=== PATIENT | male | born 1995 | race Caucasian/White ===

== ENCOUNTER 2019-05-24 00:19 | Emergency (ER) | payer MEDICAID ==
[2019-05-24] MEDS: Ibuprofen 800 MG Tab PO ONE (01:19)
[2019-05-24] MEDS: Acetaminophen 500 MG Tab PO ONE (01:19)
--- NOTE | 2019-05-24 01:20 | EDM.PDOC ---
ED HPI GENERAL MEDICAL PROBLEM - General Stated Complaint: hematoma Time Seen by Provider: 05/24/19 00:25 Source of Information: Reports: Patient - Related Data Allergies Allergy/AdvReac Type Severity Reaction Status Date / Time No Known Allergies Allergy Verified 05/24/19 09:07 Home Meds: Home Meds .Prescription Meds 1 tab PO ASDIRECTED 05/24/19 [History] Ibuprofen [Motrin] 800 mg PO TID PRN #30 tablet 05/24/19 [Rx] ED ROS GENERAL - Review of Systems Review Of Systems: See Below Constitutional: Reports: No Symptoms HEENT: Reports: No Symptoms Respiratory: Reports: No Symptoms Cardiovascular: Reports: No Symptoms Endocrine: Reports: No Symptoms GI/Abdominal: Reports: No Symptoms : Reports: No Symptoms Musculoskeletal: Reports: No Symptoms Skin: Reports: No Symptoms Neurological: Reports: No Symptoms Psychiatric: Reports: Anxiety, Depression Hematologic/Lymphatic: Reports: No Symptoms Immunologic: Reports: No Symptoms ED EXAM, GENERAL - Physical Exam Exam: See Below Eye Exam: Bilateral Eye: PERRL Ears: Normal External Exam Nose: Normal Inspection, Normal Mucosa, No Blood Respiratory/Chest: No Respiratory Distress, Lungs Clear, Normal Breath Sounds Cardiovascular: Normal Peripheral Pulses, Regular Rate, Rhythm, No Edema, No Gallop, No Murmur, No Rub GI/Abdominal: Normal Bowel Sounds, Soft, Non-Tender Extremities: Normal Inspection, Normal Range of Motion, Other (hematoma left antecubital) Course - Vital Signs Text/Narrative:: reassurance Last Recorded V/S: Last Vital Signs Temp 37.3 C 05/24/19 00:25 Pulse 97 05/24/19 00:25 Resp 18 05/24/19 00:25 BP 127/61 05/24/19 00:25 Pulse Ox 99 05/24/19 00:25 - Orders/Labs/Meds Meds: Medications Discontinued Medications Generic Name Dose Route Start Last Admin Trade Name Freq PRN Reason Stop Dose Admin Acetaminophen 1,000 mg 05/24/19 01:15 05/24/19 01:19 Tylenol Extra Strength PO 05/24/19 01:16 1,000 mg ONETIME ONE Administration Ibuprofen 800 mg 05/24/19 01:15 05/24/19 01:19 Motrin PO 05/24/19 01:16 800 mg ONETIME ONE Administration Departure - Departure Time of Disposition: 01:15 Disposition: Home, Self-Care 01 Condition: Good Clinical Impression: Hematoma - Discharge Information Prescriptions: Ibuprofen [Motrin] 800 mg PO TID PRN #30 tablet PRN Reason: Pain Instructions: Hematoma, [id number] Referrals: PCP,None [Primary Care Provider] - Forms: ED Department Discharge Additional Instructions: please read discharge instructions on hematoma apply heat take ibuprofen 800 mg with tylenol 1000 mg evry 8 hours as needed for pain follow up as needed
== END 2019-05-24 01:30 | disposition home or self-care (01) ==
LOC: FB.ED 00:19
DX: M79.81 Nontraumatic hematoma of soft tissue (principal)
CPT/HCPCS: 99283; A9270

== ENCOUNTER 2019-05-27 03:21 | Emergency (ER) | payer MEDICAID ==
--- NOTE | 2019-05-27 03:49 | EDM.PDOC ---
ED HPI GENERAL MEDICAL PROBLEM - General Chief Complaint: Respiratory Problem Stated Complaint: congestion, cough Time Seen by Provider: 05/27/19 03:46 Source of Information: Reports: Patient History Limitations: Reports: No Limitations - History of Present Illness INITIAL COMMENTS - FREE TEXT/NARRATIVE: Presents with cough, chills, and sinus congestion x 2 weeks as well as ear pain x 3 days. Denies chest pain or sob. Patient is also concerned regarding some peeling of his fingertips. Duration: Week(s): (2) Severity: Mild Generalized Pain Score (Numeric/FACES): 5 - Related Data Allergies Allergy/AdvReac Type Severity Reaction Status Date / Time No Known Allergies Allergy Verified 05/27/19 03:32 Home Meds: Home Meds Doxycycline Hyclate 100 mg PO BID #20 tablet. 05/27/19 [Rx] FLUoxetine [PROzac] 40 mg DAILY 05/27/19 [History] Past Medical History Psychiatric History: Reports: ADD, Anxiety, Depression, Suicidal Ideation, Other (See Below) (ODD) - Past Surgical History Musculoskeletal Surgical History: Reports: Other (See Below) Other Musculoskeletal Surgeries/Procedures:: States history of knee surgery. Social & Family History - Tobacco Use Smoking Status *Q: Current Every Day Smoker Tobacco Use Within Last Twelve Months: Cigarettes ED ROS GENERAL - Review of Systems Review Of Systems: Comprehensive ROS is negative, except as noted in HPI. ED EXAM, GENERAL - Physical Exam Exam: See Below Exam Limited By: No Limitations General Appearance: Alert, WD/WN, No Apparent Distress Ear Exam: Bilateral Ear: TM Dull, TM Red Nose: Normal Inspection, Other (mild tenderness overlying bilateral maxillary sinuses) Throat/Mouth: Normal Inspection, No Airway Compromise Head: Atraumatic, Normocephalic Neck: Supple Respiratory/Chest: No Respiratory Distress, Lungs Clear, Normal Breath Sounds Cardiovascular: Regular Rate, Rhythm, No Murmur GI/Abdominal: No Distention Back Exam: Full Range of Motion Extremities: Normal Range of Motion Neurological: Alert, Normal Cognition Psychiatric: Normal Affect, Normal Mood Skin Exam: Warm, Dry, Intact Course - Vital Signs Last Recorded V/S: Last Vital Signs Temp 36.7 C 05/27/19 03:21 Pulse 104 H 05/27/19 03:21 Resp 18 05/27/19 03:21 BP 144/65 H 05/27/19 03:21 Pulse Ox 99 11/22/19 03:21 Departure - Departure Time of Disposition: 03:51 Disposition: Home, Self-Care 01 Condition: Good Clinical Impression: Sinusitis, acute Qualifiers: Sinusitis location: maxillary Recurrence: non-recurrent Qualified Code(s): J01.00 - Acute maxillary sinusitis, unspecified Otitis media Qualifiers: Otitis media type: unspecified Chronicity: acute Qualified Code(s): H66.90 - Otitis media, unspecified, unspecified ear - Discharge Information *PRESCRIPTION DRUG MONITORING PROGRAM REVIEWED*: No *COPY OF PRESCRIPTION DRUG MONITORING REPORT IN PATIENT CATA: Not Applicable Prescriptions: Doxycycline Hyclate 100 mg PO BID #20 tablet. Instructions: Otitis Media, Adult, [id number], Sinusitis, Adult Referrals: PCP,None [Primary Care Provider] - Forms: ED Department Discharge Additional Instructions: Fill the prescription for Doxycycline and take as directed. You may also take OTC Mucinex as needed. Follow up with your primary physician in 3-4 days if symptoms don't improve.
[2019-05-27] MEDS ORDERED: Doxycycline 100 MG Tab PO ONE (03:51)
== END 2019-05-27 04:03 | disposition home or self-care (01) ==
LOC: FB.ED 03:21
DX: J01.00 Acute maxillary sinusitis, unspecified (principal); H66.93 Otitis media, unspecified, bilateral; F41.9 Anxiety disorder, unspecified; F32.9 Major depressive disorder, single episode, unspecified; F17.210 Nicotine dependence, cigarettes, uncomplicated; Z79.899 Other long term (current) drug therapy
CPT/HCPCS: 99283; A9270

== ENCOUNTER 2019-06-25 01:35 | Emergency (ER) | payer BC, MEDICAID ==
[2019-06-25] MEDS ORDERED: Cephalexin 500 MG Cap PO ONE (02:13)
[2019-06-25] MEDS ORDERED: Ibuprofen 600 MG Tab PO ONE (02:14)
--- NOTE | 2019-06-25 02:24 | EDM.PDOC ---
ED HPI GENERAL MEDICAL PROBLEM - General Chief Complaint: General Stated Complaint: INFECTION Time Seen by Provider: 06/25/19 02:05 Source of Information: Reports: Patient, Old Records, RN History Limitations: Reports: No Limitations - History of Present Illness INITIAL COMMENTS - FREE TEXT/NARRATIVE: 24 yo male was in the clinic yesterday for stitches in his thumb. Now the thumb is painful. [place] dizzy at home, but admits he had some alcohol this evening. Has not had a fever. Thumb feels a little swollen. Does not have purulent drainage. Onset: Gradual Onset Date: 06/24/19 Duration: Hour(s):, Getting Worse Location: Reports: Upper Extremity, Left Quality: Reports: Ache Severity: Moderate Improves with: Reports: None Worsens with: Reports: Other (time) Context: Reports: Other (see HPI) Associated Symptoms: Reports: No Other Symptoms. Denies: Diaphoresis, Fever/ Chills, Nausea/Vomiting, Rash, Syncope Treatments MANAGER INTERMEDIATE: Reports: Other (see below) (ETOH) - Related Data Allergies Allergy/AdvReac Type Severity Reaction Status Date / Time No Known Allergies Allergy Verified 06/25/19 01:44 Home Meds: Home Meds Cholecalciferol (Vitamin D3) [Vitamin D3] 2,000 unit PO DAILY 05/27/19 [History] FLUoxetine [PROzac] 40 mg DAILY 05/27/19 [History] OLANZapine [Olanzapine] 7.5 mg PO DAILY 05/27/19 [History] guanFACINE HCl [Intuniv] 3 mg PO DAILY 05/27/19 [History] Cephalexin [Keflex] 500 mg PO QID #30 capsule 06/25/19 [Rx] Past Medical History Musculoskeletal History: Reports: Fracture Other Musculoskeletal History: hx fx L knee Neurological History: Reports: Concussion Psychiatric History: Reports: ADD, Addiction, Anxiety, Depression, Psych Hospitalization(s), PTSD, Suicide Attempt, Suicidal Ideation, Other (See Below) Other Psychiatric History: hx ETOH abuse, Oncologic (Cancer) History: Reports: Brain Other Oncologic History: malignant brain tumor, refuses chemo - Past Surgical History HEENT Surgical History: Reports: Oral Surgery Musculoskeletal Surgical History: Reports: Other (See Below) Other Musculoskeletal Surgeries/Procedures:: L knee surgery Social & Family History - Family History Family Medical History: Noncontributory - Tobacco Use Smoking Status *Q: Current Every Day Smoker Years of Tobacco use: 6 Packs/Tins Daily: 3 - Caffeine Use Caffeine Use: Reports: Coffee, Energy Drinks, Soda, Tea - Alcohol Use Days Per Week of Alcohol Use: 7 Number of Drinks Per Day: 20 Total Drinks Per Week: 140 - Recreational Drug Use Recreational Drug Use: No ED ROS GENERAL - Review of Systems Review Of Systems: See Below Constitutional: Denies: Fever Cardiovascular: Reports: Lightheadedness (mild) Skin: Reports: Erythema (L thumb), Other (has stitches in the L distal thumb.). Denies: Bruising, Pruritis, Rash ED EXAM, GENERAL - Physical Exam Exam: See Below Exam Limited By: No Limitations General Appearance: Alert, WD/WN, No Apparent Distress Ear Exam: Bilateral Ear: Auricle Normal Nose: Normal Inspection Throat/Mouth: Normal Voice, No Airway Compromise Head: Atraumatic, Normocephalic Neck: Normal Inspection Respiratory/Chest: No Respiratory Distress, No Accessory Muscle Use Cardiovascular: Regular Rate, Rhythm Extremities: Pedal Edema (L thumb may be slightly swollen?), Redness (of L thumb , no red streaks. No pussy drainage. ) Neurological: Alert, Oriented, No Motor/Sensory Deficits Psychiatric: Normal Affect, Normal Mood Skin Exam: Warm, Dry, No Rash, Erythema (L thumb). No: Increased Warmth (does not feel significantly warmer than the rest of him. ), Lymphangitis Course - Vital Signs Last Recorded V/S: Last Vital Signs Temp 36.8 C 06/25/19 01:40 Pulse 84 06/25/19 01:40 Resp 18 06/25/19 01:40 BP 125/69 06/25/19 01:40 Pulse Ox 98 06/25/19 01:40 - Orders/Labs/Meds Meds: Medications Discontinued Medications Generic Name Dose Route Start Last Admin Trade Name Freq PRN Reason Stop Dose Admin Cephalexin 1,000 mg 06/25/19 02:13 Keflex PO 06/25/19 02:14 ONETIME ONE Ibuprofen 600 mg 06/25/19 02:14 Motrin PO 06/25/19 02:15 ONETIME ONE Departure - Departure Time of Disposition: 02:28 Disposition: Home, Self-Care 01 Condition: Fair Clinical Impression: Infection of thumb - Discharge Information *PRESCRIPTION DRUG MONITORING PROGRAM REVIEWED*: No *COPY OF PRESCRIPTION DRUG MONITORING REPORT IN PATIENT CATA: No Prescriptions: Cephalexin [Keflex] 500 mg PO QID #30 capsule Referrals: PCP,Not In Area [Primary Care Provider] - Additional Instructions: Wash thumb several times a day with soap and water. Elevate. Keep wound clean. Take acetaminophen or ibuprofen for pain relief. Take cephalexin as directed for what might be an early infection. Recheck if the thumb gets worse. Sepsis Event Note - Evaluation Sepsis Screening Result: No Definite Risk - Focused Exam Vital Signs: Vital Signs Temp Pulse Resp BP Pulse Ox 06/25/19 01:40 36.8 C 84 18 125/69 98 Date Exam was Performed: 06/25/19 Time Exam was Performed: 02:19
== END 2019-06-25 02:46 | disposition home or self-care (01) ==
LOC: FB.ED 01:35
DX: L08.9 Local infection of the skin and subcutaneous tissue, unspecified (principal); F41.9 Anxiety disorder, unspecified; F32.9 Major depressive disorder, single episode, unspecified; F17.210 Nicotine dependence, cigarettes, uncomplicated; Z79.899 Other long term (current) drug therapy
CPT/HCPCS: 99283; A9270

== ENCOUNTER 2024-03-25 15:03 | Emergency (ER) | payer BC, MEDICAID ==
[2024-03-25] MEDS ORDERED: Sodium Chloride 0.9% 10 ML Syringe FLUSH PRN (15:44)
[2024-03-25 16:20] LABS: BASOPHILS PERCENT AUTO 0.3 % (0.3-3.8); EOSINOPHILS ABSOLUTE AUTO 0.1 x10-3/uL (0.0-0.6); EOSINOPHILS PERCENT AUTO 1.2 % (0.1-6.8); HEMATOCRIT 43.7 % (38.3-50.1); LYMPHOCYTES ABSOLUTE AUTO 0.4 x10-3/uL (0.5-4.5); LYMPHOCYTES PERCENT AUTO 4.5 % (15.8-45.3); MEAN CORPUSCULAR HGB CONC 34.2 g/dL (28.7-35.3); MEAN CORPUSCULAR VOLUME 87.8 fL (80.8-98.7); MEAN PLATELET VOLUME 7.6 fL (6.7-11.0); MONOCYTES PERCENT AUTO 11.8 % (5.5-15.2); NEUTROPHILS ABSOLUTE AUTO 6.7 x10-3/uL (1.7-6.9); NEUTROPHILS PERCENT AUTO 82.2 % (40.3-71.8); PLATELET COUNT,PLT 193 x10(3)uL (117-477); RED BLOOD CELL COUNT 4.98 x10(6)uL (3.90-5.90); RED CELL DISTRIBUTION WIDTH 12.8 % (12.4-15.0); WHITE BLOOD CELL COUNT,WBC 8.2 x10-3/uL (3.2-10.1)
[2024-03-25] MEDS: Sodium Chloride 0.9% 1,000 ML IV SCH (16:20)
[2024-03-25] MEDS: Acetaminophen 500 MG Tab PO ONE (16:21)
[2024-03-25] MEDS: Ketorolac 30 MG/ML SDV IVPUSH ONE (16:22)
[2024-03-25 16:23] LABS: BLOOD UREA NITROGEN,BUN 11 mg/dL (7-18); CALCIUM 9.4 mg/dL (8.6-10.2); CARBON DIOXIDE,CO2 26 mmol/L (21-32); CHLORIDE,CL 99 mmol/L (100-110); ESTIMATED GFR 106 mL/min (>60); GLUCOSE RANDOM 93 mg/dL (80-116); SODIUM,NA 136 mmol/L (135-145)
[2024-03-25 16:29] LABS: A/G RATIO 1.4; ALANINE AMINOTRANSFERASE,ALT 19 U/L (12-36); ALBUMIN 4.7 g/dL (3.5-5.2); ALKALINE PHOSPHATASE 50 IU/L (56-112); ASPARTATE AMNIOTRANSFERASE,AST 12 IU/L (5-25); BILIRUBIN TOTAL 0.6 mg/dL (0.1-1.3); PROTEIN TOTAL,TP 8.1 g/dL (6.0-8.0)
[2024-03-25 16:32] LABS: LACTIC ACID 1.3 mmol/L (0.4-2.0)
[2024-03-25 16:37] LABS: BILIRUBIN,URINE NEGATIVE (NEGATIVE); GLUCOSE,URINE NORMAL (NORMAL); KETONES,URINE 15 mg/dL (NEGATIVE); LEUKOCYTE ESTERASE,URINE NEGATIVE (NEGATIVE); NITRITE,URINE NEGATIVE (NEGATIVE); OCCULT BLOOD,URINE NEGATIVE (NEGATIVE); PROTEIN,URINE NEGATIVE (NEGATIVE); UROBILINOGEN,URINE NORMAL (NEGATIVE)
[2024-03-25 16:38] LABS: APPEARANCE,URINE CLEAR (CLEAR); COLOR,URINE YELLOW (YELLOW)
[2024-03-25] MEDS: Dexamethasone 4 MG/ML SDV IVPUSH ONE (17:40)
== END 2024-03-25 17:58 | disposition home or self-care (01) ==
LOC: FB.ED 15:03
DX: U07.1 COVID-19 (principal); G43.109 Migraine with aura, not intractable, without status migrainosus; Z79.899 Other long term (current) drug therapy
CPT/HCPCS: 36415; 70450; 71045; 80053; 81003; 83605; 85025; 86140; 87040; 87635; 96361; 96374; 96375; 99284; A9270; J1100; J1885; J7030; U0002

== ENCOUNTER 2024-09-13 13:36 | Emergency (ER) | payer MEDICAID, OTHER ==
[2024-09-13] MEDS: Ketorolac 30 MG/ML SDV IVPUSH ONE (14:46)
[2024-09-13] MEDS: Sodium Chloride 0.9% 10 ML Syringe FLUSH PRN (14:47)
[2024-09-13 14:50] LABS: HEMATOCRIT 41.9 % (38.3-50.1); HEMOGLOBIN 14.3 g/dL (12.9-17.7); MEAN CORPUSCULAR HEMOGLOBIN 29.5 pg (27.0-33.3); MEAN CORPUSCULAR HGB CONC 34.2 g/dL (28.7-35.3); MEAN CORPUSCULAR VOLUME 86.4 fL (80.8-98.7); MEAN PLATELET VOLUME 7.7 fL (6.7-11.0); PLATELET COUNT,PLT 178 x10(3)uL (117-477); RED BLOOD CELL COUNT 4.84 x10(6)uL (3.90-5.90); RED CELL DISTRIBUTION WIDTH 13.7 % (12.4-15.0); WHITE BLOOD CELL COUNT,WBC 4.3 x10-3/uL (3.2-10.1)
[2024-09-13 14:54] LABS: BLOOD UREA NITROGEN,BUN 14 mg/dL (7-18); BUN/CREATININE RATIO 12.7 (9-20); CALCIUM 8.8 mg/dL (8.6-10.2); CARBON DIOXIDE,CO2 26 mmol/L (21-32); CHLORIDE,CL 99 mmol/L (100-110); CREATININE 1.1 mg/dL (0.70-1.30); EST CRCL DRUG DOSING (CG) 107.44 mL/min; ESTIMATED GFR 94 mL/min (>60); GLUCOSE RANDOM 91 mg/dL (80-116); SODIUM,NA 135 mmol/L (135-145)
[2024-09-13 15:00] LABS: ALANINE AMINOTRANSFERASE,ALT 20 U/L (12-36); ALKALINE PHOSPHATASE 48 IU/L (56-112); ASPARTATE AMNIOTRANSFERASE,AST 21 IU/L (5-25); BILIRUBIN TOTAL 0.5 mg/dL (0.1-1.3); PROTEIN TOTAL,TP 7.9 g/dL (6.0-8.0)
[2024-09-13 15:03] LABS: BAND PERCENT MAN 2 % (0-6); LYMPHOCYTES PERCENT MAN 18 % (13-37); MONOCYTES PERCENT MAN 20 % (4-12); SEG NEUTROPHILS PERCENT MAN 60 % (46-82)
[2024-09-13 15:05] LABS: BILIRUBIN,URINE NEGATIVE (NEGATIVE); GLUCOSE,URINE NORMAL (NORMAL); KETONES,URINE 50 mg/dL (NEGATIVE); LEUKOCYTE ESTERASE,URINE NEGATIVE (NEGATIVE); NITRITE,URINE NEGATIVE (NEGATIVE); OCCULT BLOOD,URINE NEGATIVE (NEGATIVE); PROTEIN,URINE TRACE mg/dL (NEGATIVE); UROBILINOGEN,URINE NORMAL (NEGATIVE)
[2024-09-13 15:14] LABS: APPEARANCE,URINE CLEAR (CLEAR); COLOR,URINE YELLOW (YELLOW)
[2024-09-13 15:15] LABS: BACTERIA,URINE FEW (NS); RBC,URINE NOT SEEN (0-5); SQUAMOUS EPITHELIAL CELLS,UR OCCASIONAL (NS,R,O); WBC,URINE 0-5 (0-5)
[2024-09-13] MEDS: Iopamidol 755 Mg/ML 100 ML Bottle IV SCH (15:22)
== END 2024-09-13 16:14 | disposition home or self-care (01) ==
LOC: FB.ED 13:36
DX: S30.1XXA Contusion of abdominal wall, initial encounter (principal); S30.0XXA Contusion of lower back and pelvis, initial encounter; F17.210 Nicotine dependence, cigarettes, uncomplicated; V28.09XA Other motorcycle driver injured in noncollision transport accident in nontraffic accident, initial encounter; Y93.55 Activity, bike riding; Y92.480 Sidewalk as the place of occurrence of the external cause; Z79.899 Other long term (current) drug therapy
CPT/HCPCS: 36415; 74177; 80053; 81001; 83690; 85025; 96374; 99284-25; J1885; Q9967

== ENCOUNTER 2024-10-29 22:01 | Emergency (ER) | payer MEDICAID ==
[2024-10-29 22:23] LABS: BASOPHILS PERCENT AUTO 0.6 % (0.3-3.8); EOSINOPHILS ABSOLUTE AUTO 0.4 x10-3/uL (0.0-0.6); EOSINOPHILS PERCENT AUTO 7.1 % (0.1-6.8); HEMATOCRIT 44.5 % (38.3-50.1); LYMPHOCYTES ABSOLUTE AUTO 1.8 x10-3/uL (0.5-4.5); LYMPHOCYTES PERCENT AUTO 33.3 % (15.8-45.3); MEAN CORPUSCULAR HEMOGLOBIN 29.5 pg (27.0-33.3); MEAN CORPUSCULAR HGB CONC 33.7 g/dL (28.7-35.3); MEAN CORPUSCULAR VOLUME 87.7 fL (80.8-98.7); MEAN PLATELET VOLUME 7.5 fL (6.7-11.0); MONOCYTES ABSOLUTE AUTO 0.6 x10-3/uL (0.0-1.2); NEUTROPHILS ABSOLUTE AUTO 2.6 x10-3/uL (1.7-6.9); PLATELET COUNT,PLT 207 x10(3)uL (117-477); RED BLOOD CELL COUNT 5.08 x10(6)uL (3.90-5.90); RED CELL DISTRIBUTION WIDTH 13.5 % (12.4-15.0); WHITE BLOOD CELL COUNT,WBC 5.5 x10-3/uL (3.2-10.1)
[2024-10-29 22:32] LABS: BLOOD UREA NITROGEN,BUN 14 mg/dL (7-18); BUN/CREATININE RATIO 12.7 (9-20); CALCIUM 9.3 mg/dL (8.6-10.2); CARBON DIOXIDE,CO2 27 mmol/L (21-32); CHLORIDE,CL 101 mmol/L (100-110); CREATININE 1.1 mg/dL (0.70-1.30); ESTIMATED GFR 94 mL/min (>60); GLUCOSE RANDOM 96 mg/dL (80-116); POTASSIUM,K 3.7 mmol/L (3.5-5.3); SODIUM,NA 138 mmol/L (135-145)
[2024-10-29 22:38] LABS: A/G RATIO 1.4; ALANINE AMINOTRANSFERASE,ALT 24 U/L (12-36); ALBUMIN 4.7 g/dL (3.5-5.2); ALKALINE PHOSPHATASE 51 IU/L (56-112); ASPARTATE AMNIOTRANSFERASE,AST 19 IU/L (5-25); BILIRUBIN TOTAL 0.4 mg/dL (0.1-1.3)
[2024-10-29 23:43] LABS: AMPHETAMINES SCREEN, URINE NEGATIVE (NEGATIVE); BARBITURATE SCREEN,URINE NEGATIVE (NEGATIVE); BENZODIAZEPINES SCREEN,URINE NEGATIVE (NEGATIVE); METHADONE SCREEN, URINE NEGATIVE (NEGATIVE); METHAMPHETAMINE SCREEN, URINE NEGATIVE (NEGATIVE); OXYCODONE SCREEN,URINE NEGATIVE (NEGATIVE); THC SCREEN,URINE POSITIVE (NEGATIVE)
[2024-10-29 23:44] LABS: BUPRENORPHINE SCREEN,URINE NEGATIVE (NEGATIVE)
== END 2024-10-30 07:30 | disposition home or self-care (01) ==
LOC: FB.ED 22:01
DX: F32.A Depression, unspecified (principal); Z79.899 Other long term (current) drug therapy
CPT/HCPCS: 36415; 80053; 80143; 80179; 80307; 85025; 93005; 99285